=== PATIENT | male | born 1970 | race African-American/Black ===

== ENCOUNTER 2019-02-05 07:31 | Inpatient (IN) ==
[2019-01-30 10:29] LABS: HEMATOCRIT 36.1 % (42.0-52.0); HEMOGLOBIN 10.8 g/dL (14.0-18.0); MCV 75.1 FL (81-99); RBC 4.81 XMIL (4.7-6.1); WBC 5.13 X1000 (4.8-10.8)
[2019-01-30 10:30] LABS: MCH 22.5 PG (27-31); MCHC 29.9 g/dL (33-37); MPV 10.1 FL (7.4-10.4); RDW 23.9 % (11.5-14.5)
[2019-01-30 11:04] LABS: AGAP 12; BUN 14 mg/dL (8-22); CALCIUM 9.2 mg/dL (8.8-10.2); CHLORIDE 103 mmol/L (98-107); COSMO 284; ESTIMATED GFR > 60; GLUCOSE 106 mg/dL (70-104); POTASSIUM 4.1 mmol/L (3.5-5.1); SODIUM 142 mmol/L (136-145); TCO2 27 mmol/L (25-35)
[2019-02-05] MEDS ORDERED: REGLAN ONE (07:43)
[2019-02-05] MEDS ORDERED: INVANZ 1 GM/NS 1 GM/50 ML IVPB ONE (07:43)
[2019-02-05] MEDS ORDERED: LR 1,000 ML ONE ×2 (07:43→08:28)
[2019-02-05] MEDS ORDERED: PEPCID ONE (07:43)
[2019-02-05] MEDS ORDERED: ENTEREG ONE (07:43)
[2019-02-05] MEDS ORDERED: VALIUM ONE (08:00)
[2019-02-05] MEDS ORDERED: VERSED ONE (08:38)
[2019-02-05] MEDS ORDERED: XYLOCAINE-MPF 2% ONE (08:38)
[2019-02-05] MEDS ORDERED: DIPRIVAN 1% ONE (08:38)
[2019-02-05] MEDS ORDERED: FENTANYL ONE (08:38)
[2019-02-05] MEDS ORDERED: ZOFRAN ONE (08:38)
[2019-02-05] MEDS ORDERED: DECADRON ONE (08:38)
[2019-02-05] MEDS ORDERED: ROBINUL ONE ×3 (08:38→12:06)
[2019-02-05] MEDS ORDERED: NORCURON ONE (08:39)
[2019-02-05] MEDS ORDERED: SODIUM CHLORIDE 0.9% 10 ML ONE ×2 (08:39→08:50)
[2019-02-05] MEDS ORDERED: EXPAREL 1.3% ONE (08:50)
[2019-02-05] MEDS ORDERED: MARCAINE 0.25% ONE (08:50)
[2019-02-05] MEDS ORDERED: SENSORCAINE 0.25%/EPI 1:200,000 ONE (10:10)
[2019-02-05 10:47] LABS: URINE SOURCE CATH
[2019-02-05 10:57] LABS: BILIRUBIN URINE NEGATIVE (NEGATIVE); BLOOD URINE TRACE (NEGATIVE); COLOR YELLOW; GLUCOSE URINE NEGATIVE (NEGATIVE); KETONE URINE 40 mg/dL (NEGATIVE); LEUKOCYTES URINE NEGATIVE (NEGATIVE); NITRITE URINE NEGATIVE (NEGATIVE); PH URINE 5.5; PROTEIN URINE NEGATIVE (NEGATIVE); SP GRAVITY URINE 1.015; TURBIDITY URINE CLEAR (CLEAR); UROBILINOGEN URINE NORMAL (NORMAL)
[2019-02-05 10:59] LABS: UR EPITHELIAL CELLS <10 /HPF (<10); URINE BACTERIA NEGATIVE /HPF; URINE RBC <10 /HPF (<10); URINE WBC <10 /HPF (<10)
[2019-02-05] MEDS ORDERED: DILAUDID ONE (11:08)
[2019-02-05] MEDS ORDERED: NEOSTIGMINE ONE (11:09)
[2019-02-05] MEDS ORDERED: OFIRMEV 1000 MG/ISOTONIC SOLN 1,000 MG/100 ML BOTTLE ONE (12:03)
[2019-02-05] MEDS ORDERED: D5 1/2 NS + KCL 20 MEQ 1,000 ML ONE (13:34)
[2019-02-05] MEDS ORDERED: MORPHINE IV PRN (14:17)
[2019-02-05] MEDS ORDERED: ZOFRAN IV PRN (14:18)
--- NOTE | 2019-02-05 14:27 | OPERATIVE NOTE ---
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 PRINCIPAL PROCEDURE: Hand-assisted, robotic-assisted laparoscopic low anterior colon resection. SURGEON: Carmel Khanna MD [facility] DEVELOPER: 1. Gordo Warren MD 2. Bradley Soriano MD ANESTHESIA: General, in addition to local anesthetic and a TAP block. ESTIMATED BLOOD LOSS: 50 mL. DRAINS: None. INDICATIONS: Mr. Del Woods is a 48-year-old slim muscular otherwise healthy black male who recently was diagnosed with near obstructing sigmoid colon cancer with a metastasis to his right lobe of liver. We planned on resecting his sigmoid colon cancer, getting him over this resection, and then treat him with IV chemotherapy under the direction of Dr. Carranza with reconsideration of resection of his liver lesion. FINDINGS: He had a near obstructing sigmoid colon cancer with what appeared to be positive lymph nodes in the sigmoid mesentery. This cancer was not attach locally to any surrounding structures. We performed a low anterior colon resection, which included part of the rectum at the pelvic inlet. We used a 31 mm EEA stapler to perform an end-to-end anastomosis between the descending colon and the proximal rectum. I did palpate the metastatic lesion in the inferior lateral right lobe of liver. No other metastatic disease was noted in the liver or elsewhere in the abdomen. We felt the operation went well. We did identify both the right and left ureters and preserved them throughout this operation. DESCRIPTION OF PROCEDURE: The patient underwent a bowel prep at home. Prior to surgery, he received IV Invanz. He was brought to the operating room, placed in [facility], and his abdomen was prepped and draped in a sterile field. I began the procedure by making a small incision at the umbilicus. A Veress needle was introduced intraabdominally. Pneumoperitoneum was established, and the Veress needle was removed. I then placed several trocars. I began with the camera, the 12 mm port which was placed superior and just to the right of the midline and the umbilicus. The camera was placed through this port, and I placed ever other trocars under direct vision of the camera. I placed an 8 mm trocar laterally left side of abdomen. I placed another 8 mm trocar between my camera port, which was mostly at the umbilicus and this left lateral port, so in the midclavicular line of the left side of abdomen, and I placed another 12 mm port, which was my staple port, right lower quadrant of the abdomen. I placed an accessory port, which was 5 mm in the right upper quadrant. This was used by our assistants at the bedside for suction. Initially, I used scissors with cautery. I used a bowel grasper, and a bipolar grasper as instruments. This was a slim male, and we could see the anatomy nicely intraabdominally. I began by incising the peritoneum at the base of the sigmoid mesentery below the inferior mesenteric artery, and I created my window by using the cautery, and I pressed down after identifying the gonadal vessels and the left ureter. I pressed those down and kept them in the retroperitoneum as I pushed up on the peritoneum so that I had a window underneath the sigmoid colon inferior to the TAL and down onto the proximal rectum. I did use the ligature. I surrounded the inferior mesenteric vessels, and then I came across them with the ligature by using the LigaSure several times with each bite to control bleeding from the inferior mesenteric artery and vein. I then marked at least 5 cm proximal to the lesion which could be seen easily on the outside wall of the sigmoid colon, and I marked 5 cm distally onto the proximal rectum. I made sure using the LigaSure that the mesentery was brought up to the points of division of the bowel. I used Firefly and made sure that the area was still viable both proximally and distally. I ended my dissection by incising the peritoneum lateral to the sigmoid colon so that the sigmoid colon and distal descending colon were completely mobilized. I used a stapler to come across the rectum, and then at this point I went to the bedside and made a lower midline incision using a 10 blade scalpel and then the cautery and I entered the abdomen. This incision was big enough for my hand. I was able to bring out the specimen. I used a pursestring ligature on the descending colon. I sized the descending colon and thought I could use a 31 mm EEA stapler. I put the anvil in there and I tied the pursestring. I took some time to clean off the bowel of any fatty tissue or epiploic appendages. I then placed 2 stitches on either side of the staple line of the rectum, and I cleaned off some fat along the rectum. At this point, we made sure there was no twisting of the bowel. I went below; Dr. Bradley Soriano was above. I placed the EEA stapler in the rectum and then brought out the spike, and remated the anvil to the spike and brought the 2 pieces of bowel together and fired the EEA. My 2 donuts were intact. I blew air across the anastomosis, and there was no leakage after warm fluid was placed in the pelvis the warm irrigation was removed with suction, and I went back to the patient's side, made sure that the bowel was all back in its anatomically correct position. I made sure I palpated the liver with the findings above. I placed the greater omentum over the surface of the bowel, and I closed my lower midline incision in layers. The first layer was a running 0 Vicryl stitch to close the peritoneum, and then the fascia was closed with a running number 1 Maxon stitch. I did take time to close an umbilical hernia and my 12 mm trocar hernias from inside using figure-of- eight 0 Vicryl stitches. All skin was closed with a skin clip tentering machine off bearer. It must be noted that anesthesia prior to the case performed a TAP block. Also, I used local anesthetic at my lower midline incision. Plans are for him to go to the recovery room and then to the floor with a Valentine catheter tube in place. We did not use an NG tube. It must be noted that Dr. Gordo Warren was present during my robotic-assisted dissection, and Dr. Roni Soriano was present for to help with the stapling of the EEA stapler. cc: Carmel Khanna MD
[2019-02-05] MEDS ORDERED: BLISTEX MEDICATED BERRY LIP BALM TOP PRN (15:37)
[2019-02-05] MEDS: D5 1/2 NS + KCL 20 MEQ 1,000 ML IV SCH (16:58)
[2019-02-05] MEDS: OFIRMEV 1000 MG/ISOTONIC SOLN 1,000 MG/100 ML BOTTLE IV SCH (18:26)
[2019-02-05] MEDS: PERIDEX MT SCH (20:32)
[2019-02-06] MEDS: OFIRMEV 1000 MG/ISOTONIC SOLN 1,000 MG/100 ML BOTTLE IV SCH ×3 (00:36→12:34)
[2019-02-06] MEDS: D5 1/2 NS + KCL 20 MEQ 1,000 ML IV SCH ×3 (00:36→17:48)
--- NOTE | 2019-02-06 07:29 | PROGRESS NOTE ---
DATE: 02/06/2019 SUBJECTIVE: Mr. Del Woods is a 48-year-old black male who is now postoperative day 1 from a hand-assisted low anterior colon resection for near obstructing sigmoid colon cancer with metastatic to right lobe of liver. We felt the surgery went well. He has a Valentine catheter tube in place. We did not use an NG tube. He is receiving IV fluids. OBJECTIVE: This morning he is awake. He is comfortable. Abdomen slightly distended. Wounds were dressed. His heart rate is 56, blood pressure 143/87, and O2 saturation 100%. He is on nasal cannula O2. He is afebrile, on no antibiotics. LABORATORY DATA: No labs were performed today. PLAN: I will begin clear liquids. We will remove his Valentine catheter tube. We will keep IV fluids going and slowly increase his activity. cc: Carmel Khanna MD
[2019-02-06] MEDS: NORCO-10 PO PRN ×3 (10:00→21:02)
[2019-02-06] MEDS: LOVENOX SUBQ SCH (10:00)
[2019-02-06] MEDS: PERIDEX MT SCH ×2 (10:01→21:03)
[2019-02-06] MEDS: ENTEREG PO SCH ×2 (10:01→21:03)
[2019-02-07] MEDS: D5 1/2 NS + KCL 20 MEQ 1,000 ML IV SCH ×2 (06:22→19:34)
[2019-02-07] MEDS: LOVENOX SUBQ SCH (10:00)
[2019-02-07] MEDS: NORCO-10 PO PRN ×2 (10:00→18:24)
[2019-02-07] MEDS: PERIDEX MT SCH ×2 (10:00→20:16)
--- NOTE | 2019-02-07 10:36 | PROGRESS NOTE ---
DATE: 02/07/2019 SUBJECTIVE: Mr. Del Woods is a 48-year-old black male who has sigmoid colon cancer that is metastatic to the right lobe of the liver, and now he is postop day 2 from a hand-assisted, robotic-assisted laparoscopic low anterior colon resection. He has tolerated liquids. He has had two bowel movements and some flatus. He has been moving around in his room. His incisions are intact. His heart rate is 72, blood pressure 132/81, O2 saturation 100%, he is afebrile. He is on no antibiotics. PLAN: Will advance his diet. Keep increasing his activity. He is getting Coolidge 10 for pain, and maintenance IV fluids. cc: Carmel Khanna MD
[2019-02-08] MEDS: NORCO-10 PO PRN ×3 (04:03→18:35)
[2019-02-08] MEDS: D5 1/2 NS + KCL 20 MEQ 1,000 ML IV SCH ×3 (07:48→23:29)
[2019-02-08] MEDS: PERIDEX MT SCH (09:10)
[2019-02-08] MEDS: LOVENOX SUBQ SCH (09:10)
--- NOTE | 2019-02-08 15:45 | PROGRESS NOTE ---
DATE: 02/08/2019 SUBJECTIVE: Mr. eDl Woods is a 48-year-old black male who is now postoperative day 3 from a hand-assisted and robotic-assisted laparoscopic low anterior colon resection for near obstructing sigmoid colon cancer that is metastatic to the right lobe of his liver. He has done well postoperatively. He has had some flatus, and he is tolerating a heart healthy diet. He still has IV fluids going. He still requires some pain medicine. He has been ambulating in his room. OBJECTIVE: His heart rate is 66, blood pressure of 117/55, and O2 saturation 99% and he is afebrile on no antibiotics. All his incisions are healing well with skin clips. His abdomen is slightly distended, not overly tender. PLAN: We will Hep-Lock his IV fluids. We will increase his activity and discuss discharge. cc: Carmel Khanna MD
[2019-02-09] MEDS: NORCO-10 PO PRN ×2 (04:40→09:14)
--- NOTE | 2019-02-09 06:23 | GENERAL SURGERY PROGRESS NOTE ---
DATE: 02/09/2019 SUBJECTIVE: The patient seems to be doing well. No major issues. OBJECTIVE: Vital signs: The patient is currently afebrile. His vital signs are stable. General: No acute distress. Cardiovascular: Regular rate and rhythm. Lungs: Grossly clear. Abdomen: Soft. Appropriately tender. ASSESSMENT AND PLAN: A 48-year-old gentleman who is postop day #4 from hand-assisted, robotic- assisted laparoscopic low anterior resection. Postoperative state: At this time, he seems to be doing okay. He has met all requirements for discharge. We will place order for discharge. cc: MD Carmel Regalado MD
[2019-02-09 08:50] VITALS: BP 142/91
--- NOTE | 2019-02-28 20:47 | DISCHARGE SUMMARY ---
ADMISSION DATE: 02/05/2019 DISCHARGE DATE: 02/09/2019 ADMITTING DIAGNOSIS: 1. Sigmoid colon cancer, near obstructing. 2. Metastasis to right lobe of the liver. POSTOPERATIVE DIAGNOSES: 1. Sigmoid colon cancer, near obstructing. 2. Metastasis to right lobe of the liver. PRINCIPAL PROCEDURE: Robotic-assisted laparoscopic low anterior colon resection on 02/05/2019. DISCHARGE DIET: Regular. DISCHARGE DISPOSITION: He will return to our outpatient offices next week for followup. DISCHARGE MEDICATIONS: He is to return to his home medications. DISCHARGE DISABILITY: Full. HOSPITAL COURSE: Mr. Del Woods is a 48-year-old black male patient of Dr. Darnell Carranza. He has been diagnosed with near obstructing sigmoid colon cancer and a mass involving his right lobe of liver. We were asked to evaluate him prior to chemotherapy. We decided on a sigmoid colon resection, then have him be re-evaluated by Dr. Carranza for chemotherapy and then readdress possible resection of this liver mass. He underwent a bowel prep prior to his presentation. He was admitted on the day of surgery and underwent a robotic assisted laparoscopic low anterior colon resection. We felt that the operation went well. We had a good cancer operation. We performed an end-to-end EEA stapled anastomosis. No drains were left. We did not use an NG tube. He went to the recovery room with Valentine catheter tube in place and then was hospitalized on the 4th floor. We felt that his postoperative convalescence has been normal. Within the first 48 hours, we removed his Valentine catheter tube. We were able to quickly reestablish his diet, starting with liquids and then advance them over the next 3 days. At discharge, he was tolerating a regular diet. He had evidence of bowel activity. His incisions were healing well. He was able to ambulate in the sung. It was felt safe to discharge him home under the care of his and family with followup in my outpatient offices in a week. He understands to call us with any increasing abdominal pain, swelling, fever. cc: Carmel Khanna MD
== END 2019-02-09 10:00 | disposition home or self-care (01) | DRG 330 ==
LOC: SURHOLD 07:31 → 4N 10:16
PROVIDERS: ADMIT Surgery; ATTEND Surgery